=== PATIENT | male | born 1950 | race Caucasian/White ===

== ENCOUNTER → 2020-10-08 | Outpatient (CLI) | payer MEDICARE, OTHER | LOC: M PAIN 15:00 | PROVIDERS: ATTEND Family Medicine | DX: Z53.8 Procedure and treatment not carried out for other reasons (principal) ==

== ENCOUNTER → 2020-10-09 | Outpatient (CLI) | payer MEDICARE, OTHER ==
--- NOTE | 2020-10-13 23:15 | ECWPNPC ---
PATIENT NAME: JOSÉ LUIS FIGUEROA : 1950 GENDER: MALE VISIT DATE: 10/09/2020 DISCHARGE DATE: 10/09/20910 VISIT LOCKED DATE TIME: PHYSICIAN: SHANTI ROWAN RESOURCE: SHANTI ROWAN REASON FOR APPOINTMENT 1. CHRONIC PAIN HISTORY OF PRESENT ILLNESS GENERAL: 62-YEAR-OLD MALE IN FOR CONSULT REGARDING CURRENT PAIN MANAGEMENT REGIMEN. HE RATES HIS PAIN CURRENTLY AT A 9 OUT OF 10. PATIENT ADMITS TO PERIODS OF BREAKTHROUGH PAIN. WHEN ASKED HOW OFTEN HE IS TAKING HIS MEDICATIONS HE IS A POOR HISTORIAN STATING AT ONE TIME THAT HE RARELY TAKES IT AND OTHERS THAT HE TAKES IT MORE FREQUENTLY. PATIENT IS NOTED TO ASK FOR EARLY REFILLS EVEN THOUGH HE STATES HE TAKES HIS MEDICATIONS INFREQUENTLY. PATIENT DOES ADMIT TO INTERMITTENT MARIJUANA USE. FALL RISK SCREENING: SCREENING :TWO OR MORE FALLS WITH INJURY IN THE PAST YEAR PATIENT HAS HAD MULTIPLE FALLS AND SOUGHT TREATMENT FOR A FEW OF THEM. PAIN SCREENING: PATIENT HAS A COMPLAINT OF ACUTE OR CHRONIC PAIN :YES LOCATION OF PAIN:BOTH SHOULDERS, UPPER BACK, MID BACK, LOW BACK, BACK, LEG(S), KNEES INTENSITY OF PAIN (SCALE OF 1 TO 10):9 WHAT DOES YOUR PAIN FEEL LIKE:CONTINOUS, SHARP, STABBING, TENDER, SORE, SHOOTING, OTHER WEAKNESS IN RIGHT LEG DURATION:CONTINOUS PAIN IS INCREASED BY:ACTIVITIES, PROLONGED STANDING, OTHERS LIFTING, SITTING PAIN IS DECREASED BY:OTHERS NOTHING EASES THE PAIN. TREATMENT/MEDICATIONS USED TO MANAGE PAIN:OTC PAIN RELIEVERS, NSAIDS, TOPICAL CORTICOSTEROIDS, OPIOIDS, PHYSICAL THERAPY HAS TRIED HYDROCODE IN THE PAST WITH RELIEF. PAIN CENTER INTAKE QUESTIONS: DO YOU HAVE A HISTORY OF MRSA? :NO DO YOU TAKE A BLOOD THINNERS? :YES PLAVIX DO YOU HAVE ANY BLEEDING DISORDERS? :NO ANY NEW NUMBNESS OR WEAKNESS IN YOUR LEGS OR ARMS? :YES BILATERAL WEAKNESS AND NUMBNESS. ANY PACEMAKER,DEFIBRILLATOR, OR DORSAL COLUMN STIMULATOR? :NO DO YOU HAVE ANY RASHES OR OPEN SORES? :NO ARE YOU ALLERGIC TO IV DYE? :YES ARE YOU DIABETIC? :NO ANY NEW PROBLEMS WITH YOUR MEDICATIONS? :NO HAVE YOU RECEIVED A VACCINE IN THE PAST 30 DAYS? :YES IF SO WHAT VACCINE AND WHEN? FLU SHOT AROUND AUGUST 2020. PATIENT UNSURE OF DATE. DO YOU PLAN TO RECEIVE A VACCINE IN THE NEXT 21 DAYS? :NO DO YOU NEED ANY PRESCRIPTION? :NO DO YOU TAKE ANY IMMUNOSUPPRESSIVE MEDICATIONS? :NO IS THERE A CHANCE YOU COULD BE ? :NO ARE YOU BREAST FEEDING? :NO CURRENT MEDICATIONS TAKING METFORMIN HCL 1000 MG TABLET 1 TABLET WITH A MEAL ORALLY BID TAKING GEMFIBROZIL 600 MG TABLET 1 TABLET ORALLY TWICE A DAY TAKING OMEPRAZOLE 20 MG CAPSULE DELAYED RELEASE 1 CAPSULE 30 MINUTES BEFORE MORNING MEAL ORALLY ONCE A DAY TAKING ASPIRIN 325 MG TABLET DELAYED RELEASE 1 TABLET ORALLY ONCE A DAY TAKING ISOSORBIDE MONONITRATE ER 60 MG TABLET EXTENDED RELEASE 24 HOUR 1 TABLET ORALLY BID TAKING HYDROCODONE-ACETAMINOPHEN 5-325 MG TABLET 1 TABLET NEEDED ORALLY BID TAKING LISINOPRIL 20 MG TABLET 1 TABLET ORALLY ONCE A DAY TAKING METOPROLOL TARTRATE 25 MG TABLET 1 TABLET WITH FOOD ORALLY DAILY TAKING NITROSTAT 0.4 MG TABLET SUBLINGUAL DIRECTED SUBLINGUAL TAKING PLAVIX 75 MG TABLET 1 TABLET ORALLY ONCE A DAY TAKING ROBAXIN-750 750 MG TABLET 1 TABLET NEEDED ORALLY EVERY 8 HRS, NOTES: 500 MG TAKING SERTRALINE HCL 100 MG TABLET 1.5 TABLETS ORALLY ONCE A DAY TAKING SIMETHICONE 80 MG TABLET CHEWABLE 1 TABLET AFTER MEALS AND AT BEDTIME NEEDED ORALLY EVERY 6 HOURS TAKING SIMVASTATIN 40 MG TABLET 1 TABLET IN THE EVENING ORALLY ONCE A DAY TAKING TRESIBA FLEXTOUCH 200 UNIT/ML SOLUTION PEN-INJECTOR 60 UNITS SUBCUTANEOUS DAILY TAKING VITAMIN D 50 MCG (2000 UT) TABLET 1 TABLET ORALLY FOUR TIMES DAILY NEEDED TAKING GLIPIZIDE 5 MG TABLET 2 TABLETS ORALLY BID TAKING CALCIPOTRIENE-BETAMETH DIPROP 0.005-0.064 % OINTMENT 1 APPLICATION EXTERNALLY BID TAKING KRILL OIL 1000 MG CAPSULE DIRECTED ORALLY FOUR TIMES DAILY NOT-TAKING FISH OIL OMEGA-3 1000 MG CAPSULE 2 CAPSULES ORALLY BID NOT-TAKING ISOSORBIDE DINITRATE 40 MG TABLET 1 TABLET ORALLY TWICE A DAY NOT-TAKING ZOCOR 1 TAB ORAL NOT-TAKING METOPROLOL-HYDROCHLOROTHIAZIDE 50-25 MG TABLET 1 TABLET WITH A MEAL ORALLY ONCE A DAY NOT-TAKING KRILL OIL 350 MG CAPSULE 1 CAP ORALLY FOUR TIMES DAILY NOT-TAKING ASPIRIN 1 TAB ORAL MEDICATION LIST REVIEWED AND RECONCILED WITH THE PATIENT PAST MEDICAL HISTORY DIABETES MELLITUS HTN HYPERLIPIDEMIA CAD KNEE DJD CHRONIC LOW BACK PAIN CHRONIC NECK PAIN SQUAMOUS CELL PAPILLOMA OF SKIN LEFT ROTATOR CUFF SYNDROME CAROTID ENDARTERECTOMY OSTEOARTHRITIS ALLERGIES IV DYE: HIVES - ALLERGY CORTISONE: ANAPHYLAXIS - ALLERGY SURGICAL HISTORY CARDIAC BYPASS (CABG) 1989 ANGEOPLASTESIA 2006 CARDIAC STENT ARTIFICIAL KNEE ON LEFT SIDE 1999 RIGHT WRIST NECK DOUBLE MENISCUS RIGHT ARM BONE FUSION LEFT ELBOW BONE FUSION ON LEFT WRIST TORN ROTATOR CUFF IN RIGHT SHOULDER FAMILY HISTORY FATHER: , DIAGNOSED WITH DIABETES MOTHER: , DIABETES SOCIAL HISTORY GENERAL: TOBACCO USE ARE YOU A:NONSMOKER LATEX QUESTIONNAIRE LATEX ALLERGY : HAVE YOU EVER DEVELOPED ANY TYPE OF REACTION AFTER HANDLING LATEX PRODUCTS SUCH RUBBER GLOVES, CONDOMS, DIAPHRAGMS, BALLOONS, SOCKS, OR UNDERWEAR?NO LATEX ALLERGY : HAVE YOU EVER DEVELOPED ANY TYPE OF REACTION DURING OR AFTER DENTAL APPOINTMENT, VAGINAL/RECTAL EXAMINATION, SURGICAL PROCEDURE, OR ANY OTHER EXPOSURE?NO DATE ASKED : 10/08/2020 LATEX RISK : HAVE YOU EVER HAD ANY DIFFICULTY BREATHING OR HIVES AFTER EATING OR HANDLING ANY FRUITS, OR VEGETABLES; SUCH KIWI, BANANAS, STONE FRUITS, OR CHESTNUTSNO LATEX RISK : DO YOU HAVE A PREVIOUS PERSONAL HISTORY OF MORE THAN NINE SURGERIES, SPINA BIFIDA, OR REPEATED CATHERIZATIONS? YES - PLEASE INDICATE : > 9 SURGERIES LATEX RISK : ARE YOU FREQUENTLY EXPOSED TO LATEX PRODUCTS IN YOUR OCCUPATION?NO ALCOHOL SCREENING DID YOU HAVE A DRINK CONTAINING ALCOHOL IN THE PAST YEAR?NO POINTS0 INTERPRETATIONNEGATIVE RECREATIONAL DRUG USE: YES DRUG USE?YES MARIJUANA ON OCCASION IN THE EVENING FOR THE PAIN LEARNING BARRIERS / SPECIAL NEEDS BARRIERS TO LEARNING?YES MEMORY ISSUES HEARING IMPAIRED?YES VISION IMPAIRED?YES COGNITIVELY IMPAIRED?NO :CORRECTIVE LENSES READINESS TO LEARN?YES LEARNING PREFERENCES?NO LEARNING CAPABILITIES PRESENT?YES EMOTIONAL BARRIERS?NO SPECIAL DEVICES?NO PROCESS DEVELOPER NEEDED?NO HOSPITALIZATION/MAJOR DIAGNOSTIC PROCEDURE SURGERY RELATED REVIEW OF SYSTEMS CONSTITUTIONAL: ANY RECENT FEVER NO . CHILLS NO . WEIGHT CHANGE OF UNKNOWN REASONS NO . GASTROENTEROLOGY: NEW UNEXPLAINABLE CHANGES IN BOWEL CONTROL NO . CONSTIPATION NO . GENITOURINARY: ANY NEW CHANGE IN BLADDER CONTROL? NO . NEUROLOGY: NEW ONSET DIZZINESS OR NEUROLOGICAL CHANGES NOT MENTIONED NO . NEW NUMBNESS OR PAIN PATTERNS NOT MENTIONED AND PERTINENT TO TODAY'S VISIT NO . CARDIOLOGY: NEW CHEST PRESSURE NO . NEW CHEST PAIN NO . RESPIRATORY: UNEXPLAINABLE COUGH NO . NEW SHORTNESS OF BREATH NO . VITAL SIGNS NO VITAL SIGNS OBTAINED DUE TO VISUAL VISIT. OPAL MALDONADO MA. EXAMINATION GENERAL EXAMINATION: PSYCHAPPROPRIATE MOOD AND AFFECT , ORIENTED X 3. ASSESSMENTS DORSALGIA, UNSPECIFIED - M54.9 (PRIMARY) TREATMENT DORSALGIA, UNSPECIFIED NOTES: 70-YEAR-OLD MALE IN FOR CONSULT REGARDING CURRENT MEDICATION REGIMEN. PATIENT DOES ADMIT TO INTERMITTENT MARIJUANA USE AND THIS SHOULD BE DISCUSSED AT CLINIC VISIT. DISCUSSED CASE WITH DR. CUEVA AND IT WAS DECIDED THAT GIVEN THE INCOSISTENCIES IN PATIENT'S STORY WELL TESTING NEGATIVE FOR OPIATES ON MULTIPLE OCCASIONS PATIENT WILL BE TAKEN OFF HIS OPIATES. THIS [facility] DID RECOMMEND STARTING GABAPENTIN WITH FOLLOW-UP TO DETERMINE EFFICACY OF TREATMENT. VISIT PERFORMED VIA TELEPHONE. TIME SPENT WITH PATIENT 11 MINUTES. DISPOSITION & COMMUNICATION FOLLOW UP FOLLOW-UP WITH DESIRAE RIOS (REASON: BACK PAIN) ELECTRONICALLY SIGNED BY KRISTI CARR ON 10/13/2020 AT 09:17 AM EST DISCLAIMER : THIS IS A VISIT SUMMARY EXTRACTED FROM THE [employer] CHART. IT IS NOT A COPY OF THE [employer] PROGRESS NOTE. ANGEL
== END ==
LOC: M PAIN 15:30
PROVIDERS: ATTEND Family Medicine
DX: M54.9 Dorsalgia, unspecified (principal); E11.9 Type 2 diabetes mellitus without complications; Z95.1 Presence of aortocoronary bypass graft; Z88.8 Allergy status to other drugs, medicaments and biological substances; Z91.041 Radiographic dye allergy status; Z79.01 Long term (current) use of anticoagulants; Z79.4 Long term (current) use of insulin; Z79.82 Long term (current) use of aspirin; Z79.899 Other long term (current) drug therapy